=== PATIENT | female | born 1980 | race Caucasian/White ===

== ENCOUNTER → 2024-06-11 | Outpatient (CLI) | payer BC, SELFPAY ==
--- NOTE | 2024-06-11 14:30 | XR_ITS ---
Examination: Screening digital mammography, bilateral Computer aided detection 3-D breast Tomosynthesis, bilateral Date and time of exam: June 11, 2024 1411 hours No priors Indication: Screening breast discharge on the right side several years, family history mother breast cancer Technique: Nonmagnified MLO, CC views of the breasts to been obtained, reconstructed from 3-D Tomosynthesis images. R2 computer aided detection program utilized for evaluation of suspicious masses and/or abnormal calcifications. 3-D Tomosynthesis images obtained. Findings: The breasts are heterogeneously dense, which may obscure small masses 7 mm circumscribed round nodule 3:00 position right breast anterior depth Benign calcifications Impression: BI-RADS Category 0: Incomplete: Need additional imaging evaluation 7 mm circumscribed round mass 3:00 position right breast anterior depth, recommend follow-up spot tomographic views of this mass as well as a bilateral breast sonography to complete the workup
== END | disposition home or self-care (01) ==
PROVIDERS: PCP Internal Medicine; Referring Provider Internal Medicine; Visit Provider Internal Medicine
DX: Z12.31 Encounter for screening mammogram for malignant neoplasm of breast (principal); N63.15 Unspecified lump in the right breast, overlapping quadrants
CPT/HCPCS: 77063; 77067

== ENCOUNTER → 2024-06-18 | Outpatient (CLI) | payer BC, SELFPAY ==
--- NOTE | 2024-06-18 | XR_ITS ---
Examination: Breast ultrasound complete, bilateral Date and time of exam: June 18, 2024 1226 hours INDICATIONS: Palpable lump upper right breast note is beginning one month ago, family history breast cancer, mammogram June 11, 2024 17 mm mass 3:00 position right breast Technique: Real-time grayscale ultrasonographic imaging bilateral breasts, including all 4 quadrants as well as nipple retroareolar and axillary regions. Findings: Sonographic images right breast 3:00 oval mass circumscribed 6 x 7 mm 3:00 oval mass circumscribed 8 x 10 mm 11:00 oval mass circumscribed 10 x 10 mm Sonographic images left breast Retroareolar oval mass 14 x 12 mm partially indistinct margins IMPRESSION: BI-RADS Category 4: Suspicious for malignancy Suspicious mass retroareolar region left breast, biopsy is needed to exclude breast carcinoma, this mass is amenable to ultrasound-guided breast biopsy for diagnosis
--- NOTE | 2024-06-18 12:24 | XR_ITS ---
Examination: Diagnostic digital mammography, unilateral, right Computer aided detection 3-D breast Tomosynthesis, unilateral Date and time of exam: June 18, 2024 1239 hours Compared to June 11, 2024 INDICATIONS: Mammogram June 11, 2024 7 mm circumscribed nodule 3:00 position right breast anterior depth Technique: Nonmagnified MLO, CC views of the right breast have been obtained, reconstructed from 3-D Tomosynthesis images. R2 computer aided detection program utilized for evaluation of suspicious masses and/or abnormal calcifications. 3-D Tomosynthesis images obtained. Findings: Scattered areas of fibroglandular density 7 mm circumscribed nodule inner upper right breast on the spot compression views Impression: BI-RADS category 3: Probably benign findings Recommend 1 additional 6 month right mammogram follow-up
== END | disposition home or self-care (01) ==
LOC: CDIM 11:29
PROVIDERS: PCP Family Medicine; Referring Provider Internal Medicine; Visit Provider Internal Medicine
DX: R92.331 Mammographic heterogeneous density, right breast (principal); N63.42 Unspecified lump in left breast, subareolar; N63.15 Unspecified lump in the right breast, overlapping quadrants
CPT/HCPCS: 76641; 77061; 77065; G0279

== ENCOUNTER → 2024-09-10 | Outpatient (CLI) | payer BC, SELFPAY ==
--- NOTE | 2024-09-10 08:45 | XR_ITS ---
Examination: Breast ultrasound complete, bilateral Date and time of exam: September 11, 2019 0508 hrs. Indications: Family history breast cancer, mother Technique: Real-time grayscale ultrasonographic imaging bilateral breasts, including all 4 quadrants as well as nipple retroareolar and axillary regions. Findings: Sonographic images right breast 2:00 circumscribed oval mass 7 x 6 mm 3:00 mass irregular, lobular margins 8 x 7 mm 11:00 oval mass circumscribed 11 x 9 Sonographic images left breast 2:00 oval mass circumscribed 8 x 7 mm Retroareolar oval mass lobular margins 15 x 16 mm Impression: BI-RADS Category 4: Suspicious for malignancy Suspicious mass 10:00 position right breast, biopsy is needed to exclude breast carcinoma, this mass is amenable to ultrasound-guided breast biopsy for diagnosis Six-month breast sonography follow-up also strongly recommended
--- NOTE | 2024-09-10 09:45 | XR_ITS ---
Examination: Diagnostic digital mammography, bilateral Computer aided detection 3-D breast Tomosynthesis, bilateral Date and time of exam: 09/10/2024, 9:15 AM Comparisons: June 2024 Indications:Follow-up bilateral biopsy Technique: Nonmagnified MLO, CC views of the breasts to been obtained, reconstructed from 3-D Tomosynthesis images. R2 computer aided detection program utilized for evaluation of suspicious masses and/or abnormal calcifications. 3-D Tomosynthesis images obtained. Findings: The breasts are heterogeneously dense, which may obscure small masses. 7 mm mass medial right breast with adjacent postbiopsy marker clip at site of biopsy-proven fibroadenoma. 1.5 cm retroareolar mass with adjacent postbiopsy marker clip at site of fibroadenoma and atypical lobular hyperplasia. Impression: Biopsy proven breast left breast atypical lobular hyperplasia. Surgical consult/surgical excision is recommended BI-RADS category 4: Suspicious abnormality, surgical follow-up
== END | disposition home or self-care (01) ==
PROVIDERS: PCP Family Medicine; Referring Provider Surgery; Visit Provider Surgery
DX: R92.343 Mammographic extreme density, bilateral breasts (principal); R92.8 Other abnormal and inconclusive findings on diagnostic imaging of breast; N63.11 Unspecified lump in the right breast, upper outer quadrant
CPT/HCPCS: 76641; 77062; 77066; G0279

== ENCOUNTER → 2025-01-08 | Outpatient (CLI) | payer BC, SELFPAY ==
--- NOTE | 2025-01-08 08:30 | XR_ITS ---
Examination: Breast ultrasound complete, bilateral Date and time of exam: January 08, 2025 0923 hours INDICATIONS: Bilateral breast tenderness several months, family history, mother, breast cancer Technique: Real-time grayscale ultrasonographic imaging bilateral breasts, including all 4 quadrants as well as nipple retroareolar and axillary regions. Findings: Sonographic images right breast 3:00 nodule lobular margins 8 x 8 mm 3:00 nodule circumscribed 8 x 8 mm 10:00 nodule circumscribed 5 x 9 mm 11:00 nodule partially indistinct margins 12 x 12 mm Sonographic images left breast 2:00 nodule circumscribed 14 x 10 mm 3:00 nodule circumscribed 6 x 5 mm Retroareolar nodule partially indistinct margins 14 x 13 mm IMPRESSION: BI-RADS Category 4: Suspicious for malignancy Suspicious nodules 11:00 position right breast and retroareolar region left breast Recommend ultrasound-guided biopsy of both of these nodules Also recommend 6 month follow-up bilateral breast sonography to document stability of the additional solid nodules described above
--- NOTE | 2025-01-08 09:30 | XR_ITS ---
Examination: Diagnostic digital mammography, bilateral Computer aided detection 3-D breast Tomosynthesis, bilateral Date and time of exam: January 08, 2025 at 0958 hours Compared to mammograms dating to June 11, 2024 INDICATIONS: Family history, mother, breast cancer, history negative breast biopsies August 2024 Technique: Nonmagnified MLO, CC views of the breasts to been obtained, reconstructed from 3-D Tomosynthesis images. R2 computer aided detection program utilized for evaluation of suspicious masses and/or abnormal calcifications. 3-D Tomosynthesis images obtained. Findings: The breasts are heterogeneously dense, which may obscure small masses Please see the bilateral breast sonography report today indicating suspicious nodules right breast 11:00 position right breast and retroareolar left breast Impression: BI-RADS Category 4: Suspicious for malignancy Suspicious masses both breasts that are depicted on breast sonogram report today Ultrasound examination today recommends biopsies of suspicious nodule 11:00 position right breast and retroareolar region left breast Left breast retroareolar nodule may have by history already been biopsied with negative result, clinical correlation advised
== END | disposition home or self-care (01) ==
PROVIDERS: PCP Surgery; Referring Provider Surgery; Visit Provider Surgery
DX: N63.25 Unspecified lump in the left breast, overlapping quadrants (principal); N63.15 Unspecified lump in the right breast, overlapping quadrants; N63.21 Unspecified lump in the left breast, upper outer quadrant; R92.333 Mammographic heterogeneous density, bilateral breasts; N63.11 Unspecified lump in the right breast, upper outer quadrant; N63.42 Unspecified lump in left breast, subareolar
CPT/HCPCS: 76641; 77062; 77066; G0279